=== PATIENT | male | born 2005 | race Caucasian/White ===

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

== ENCOUNTER 2024-09-19 01:04 | Outpatient (CLI) | payer MEDICAID, SELFPAY ==
--- OUTSIDE RECORDS SUMMARY | 2024-09-19 01:08 | XMS_ITS | Encounter Summary ---
Author Organization [facility] Address [facility] [place] [address] Care Team Providers Care Water Meter Installer Name Role Phone Rashaun Sherman APRN Primary Care Provider +1- [phone] Encounter Details Date Type Department Care Team (Latest Contact Info) Description 11/29/2023 9:30 AM EDT TH Visit (TeleHealth) [place] [address] Tita Wood MD [facility] [place] [address] Essential hypertension Social History Tobacco Use Types Packs/Day Years Used Date Smoking Tobacco: Never Smokeless Tobacco: Never Sex and Gender Information Value Date Recorded Sex Assigned at Not on file Gender Identity Not on file Sexual Orientation Not on file documented as of this encounter Progress Notes * Tita Wood MD - 11/29/2023 9:30 AM EDT Images from the original note were not included. Section of Vascular Surgery [facility] [place] [id number] VASCULAR SURGERY POSTOP FOLLOW-UP - TELEHEALTH APPOINTMENT SERVICE DATE: 11/29/2023 SERVICE TIME: 9:34 AM PRIMARY CARE PHYSICIAN: Rashaun Sherman APRN REFERRING PROVIDER: No referring provider defined for this encounter. Patient verbally consents to this telephone visit and understands that this visit may be billed, similar to a clinic office visit. CC: Follow-up hypertension, concern for renal artery stenosis History of Present Illness: Marlin You is a 18 y.o. male who was seen by me on 10/16/2023 after referral from cardiology for evaluation of early onset mild hypertension and concern for renal arterystenosis. He underwent bilateral renal artery duplexes which note stated some elevated velocities however this was in the context of also an increased aortic velocity. He remains on a single low-doseagent of losartan 50 mg daily. He reports he has not been checking his blood pressure is much, however when he does to the 130s over 90s. He denies any new symptoms or concerns. He did undergo a CTA for follow-up to rectify the findings on the ultrasound. Physical Exam: Telehealth visit limited. Patient was alert, awake and well-appearing. DATA: Radiology: 11/2023 CT a abdomen and pelvis Normal caliber thoracic and abdominal aorta without any evidence of atherosclerosis or stenosis Widely patent bilateral iliac systems Celiac artery with mild compression likely secondary to median arcuate ligament compression, otherwise widely patent SMA widely patent without any evidence of stenosis Right renal artery and main left and accessory renal arteries are widely patent without any evidence of stenosis I have personally reviewed the following images/data: CTA Impression: 18 y.o. male with mild single agent hypertension without any evidence of renal artery stenosis. The elevated velocities on the prior ultrasound were mild, and are not consistent with a completely normal CTA. His symptoms and mild hypertension are also not suggestive of renovascular hyper tension. Plan: - I recommended he continue to follow-up with his PCP as well as his instrument technician for ongoing management of his hypertension. - follow-up as needed SIGNATURE: Tita Wood MD PATIENT NAME: Marlin You DATE: November 29, 2023 TIME: 9:34 AM I provided care to the patient today via telehealth call. The total time associated with this visitwas 25 minutes. documented in this encounter Plan of Treatment Not on file documented as of this encounter Visit Diagnoses Diagnosis Essential hypertension Unspecified essential hypertension documented in this encounter Care Teams Water Meter Installer Relationship Specialty Start Date End Date Rashaun Sherman APRN [address] [place] [address] PCP - General Family Medicine 08/23/23 documented as of this encounter
--- OUTSIDE RECORDS SUMMARY | 2024-09-19 01:08 | XMS_ITS | Encounter Summary ---
Author Organization [facility] [place] [address] Care Team Providers Care Art Therapy Specialist Name Role Phone Rashaun Sherman APRN Primary Care Provider +1- [phone] Reason for Referral * Consultation (Routine) - Closed Specialty Diagnoses / Procedures Referred By Stefano t Referred To Contact Vascular Surgery Diagnoses Atherosclerosis of renal artery ROUTINE, MD/WINDY, DOT Rashaun Cartwright APRN [address] [place] [address] [facility] Vascular Surg [address] [place] [address] Referral ID Status Reason Start Date Expiration Date V isits Requested Visits Authorized [id number] Closed Consult, Test & Treat 08/31/2023 08/30/2024 1 1 Encounter Details Date Type Department Care Team (Late st Contact Info) Description 08/31/2023 Transcribe Orders eDH Incoming Referrals [phone] Rashaun Sherman APRN [address] [place], [place] [id number] Atherosclerosis of renal artery Social History Tobacco Use Types Packs/Day Years Used Date Smoking Tobacco: Never Smokeless Tobacco: Never Sex and Gender Information Value Date Recorded Sex Assigned at Not on file Gender Identity Not on file Sexual Orientation Not on file documented as of this encounter Plan of Treatment Scheduled Referrals Name Type Priority Associated Diagnoses Orde r Schedule Referral to Vascular Surgery Outpatient Referral Routine Atherosclerosis of renal artery Ordered: 08/31/2023 documented as of this encounter Visit Diagnoses Diagnosis Atherosclerosis of renal artery documented in this encounter Care Teams Art Therapy Specialist Relationship Specialty Start Date End Date Rashaun Sherman, BSW [address] [place] [address] PCP - General Family Medicine 08/23/23 documented as of this encounter
--- OUTSIDE RECORDS SUMMARY | 2024-09-19 01:08 | XMS_ITS | Encounter Summary ---
[place] [address] Care Team Providers Care Poultry Eviscerator Name Role Phone Rashaun Sherman APRN Primary Care Provider +1- [phone] Encounter Details Date Type Department Care Team (Latest Contact Info) Description 08/23/2023 Travel Social History Tobacco Use Types Packs/Day Years Used Date Smoking Tobacco: Never Smokeless Tobacco: Never Sex and Gender Information Value Date Recorded Sex Assigned at Not on file Gender Identity Not on file Sexual Orientation Not on file documented as of this encounter Plan of Treatment Not on file documented as of this encounter Visit Diagnoses Not on filedocumented in this encounter Care Teams Poultry Eviscerator Relationship Specialty Start Date End Date Rashaun Sherman APRN [address] [place], [place] [id number] PCP - General Family Medicine 08/23/23 documented as of this encounter
--- OUTSIDE RECORDS SUMMARY | 2024-09-19 01:08 | XMS_ITS | Encounter Summary ---
[place] [address] Care Team Providers Care Machine Tester Name Role Phone Unavailable Primary Care Provider Unavailabl e Encounter Details Date Type Department Care Team (Late st Contact Info) Description 07/28/2023 External [place] [id number] Social History Tobacco Use Types Packs/Day Years Used Date Smoking Tobacco: Never Assessed Sex and Gender Information Value Date Recorded Sex Assigned at Not on file Gender Identity Not on file Sexual Orientation Not on file documented as of this encounter Plan of Treatment Not on file documented as of this encounter Procedures Procedure Name Priority Date/Time Associated Diagnosis Comments ECG SCAN Routine 07/28/2023 10:14 PM EST documented in this encounter Results * Scan Doc: ECG (07/28/2023 10:14 PM EST) Historical Provider MD CHRISTOPHER LENZ SCAN EX T ORDR/RSLT documented in this encounter Visit Diagnoses Not on filedocumented in this encounter
--- OUTSIDE RECORDS SUMMARY | 2024-09-19 01:08 | XMS_ITS | Encounter Summary ---
Author Organization [facility] Address [facility] [place] [address] Care Team Providers Care Stone Belt Sander Name Role Phone Unavailable Primary Care Provider Unavailabl e Encounter Details Date Type Department Care Team (Late st Contact Info) Description 07/28/2023 Telephone [place] [phone] Zachariah Warner MD [facility] [place] [address] Social History Tobacco Use Types Packs/Day Years Used Date Smoking Tobacco: Never Assessed Sex and Gender Information Value Date Recorded Sex Assigned at Not on file Gender Identity Not on file Sexual Orientation Not on file documented as of this encounter Miscellaneous Notes * Telephone Encounter - Zachariah Warner MD - 07/28/2023 10:40 PM EST Images from the original note were not included. Initial Contact Date: 07.28.23 Referring Provider: Camryn Patient Location: [facility] HPI: 18 yoM w/ PMHx of HTN on losartan, presenting with chest pain. Reports 6-8 hours of chest pain. Pleuritic, left anterior. Otherwise fit, no syncope, dyspnea or other complaints. No family history of cardiac disease. Vitals: Vitals wnl Exam: Exam wnl per provider Bedside POCUS normal LV function, valvular movements Pertinent Diagnostic Findings: ECG: NSR, T wave inversion inferior leads, dagger like q wave in inferior and lateral leads Trop 79>71 (ULN 60) CXR: wnl Past cardiac studies: N/a OSH Interventions: No medications Assessment: Recommendations: 18 yoM w/ PMHx of HTN on losartan who presents with chest pain. Hemodynamically normal, non-tachycardic. Troponins slightly elevated but flat with ECG demonstrating q waves in inferior and lateral leads with T wave inversion in inferior leads. Pleuritic nature of chest pain is more likely viral myocarditis, however ECG with suggestion of possible underlying HCM. Given stable status and symptoms that have largely resolved, reasonable to pursue further outpatient diagnostics. Plan: - obtain echocardiogram - consider exercise testing and cMR - outpatient workup of hypertension - screen for toxins - follow-up with cardiology Above recommendations were based on my discussion with Dr. Cowan ; I have not personally interviewed or examined this patient. Advised to call the transfer center back with any changes in the patient condition. Zachariah Warner MD [employer] Developer documented in this encounter Plan of Treatment Not on file documented as of this encounter Visit Diagnoses Not on filedocumented in this encounter
--- OUTSIDE RECORDS SUMMARY | 2024-09-19 01:08 | XMS_ITS | Encounter Summary ---
Author Organization [facility] [place] [address] Care Team Providers Care Operating Engineer Apprentice Name Role Phone Unavailable Primary Care Provider Unavailabl e Reason for Referral * Consultation (Routine) - Closed Specialty Diagnoses / Procedures Referred By Contarslan t Referred To Contact Cardiology Diagnoses Chest pain, unspecified type Myocarditis, unspecified chronicity, unspecified myocarditis type Acute pericarditis, unspecified type S/P ED @ [facility] for non-exertional L anterior chest pain, Myocarditis, Acute pericarditis. EKG- NSR ,dagger-like Q waves inferior lateral, LVH. PMH HTN-recently started on losartan, no FHX of CVD. Martin Liu MD [address] [place] [address] [place] [address] [facility] Card[facility] [address] [place] [phone] Referral ID Status Reason Start Date Expiration Date V isits Requested Visits Authorized [id number] Closed Consult, Test & Treat PCP Updated and/or Approved 08/02/2023 08/01/2024 6 6 Encounter Details Date Type Department Care Team (Late st Contact Info) Description 08/02/2023 Transcribe Orders eDH Incoming Referrals [phone] Martin Liu MD [address] [place] [address] [address] [place], [place] [id number] Chest pain, unspecified type; Myocarditis, unspecified chronicity, unspecified myocarditis type; Acute pericarditis, unspecified type Social History Tobacco Use Types Packs/Day Years Used Date Smoking Tobacco: Never Assessed Sex and Gender Information Value Date Recorded Sex Assigned at Not on file Gender Identity Not on file Sexual Orientation Not on file documented as of this encounter Plan of Treatment Scheduled Referrals Name Type Priority Associated Diagnoses Orde r Schedule Referral to Cardiology Outpatient Referral Routine Chest pain, unspecified type Myocarditis, unspecified chronicity, unspecified myocarditis type Acute pericarditis, unspecified type Ordered: 08/02/2023 documented as of this encounter Visit Diagnoses Diagnosis Chest pain, unspecified type Myocarditis, unspecified chronicity, unspecified myocarditis type Acute pericarditis, unspecified type documented in this encounter
--- OUTSIDE RECORDS SUMMARY | 2024-09-19 01:08 | XMS_ITS | Encounter Summary ---
Author [place] [address] Care Team Providers Care Shrimp Trawler Captain Name Role Phone Rashaun Sherman APRN Primary Care Provider +1- [phone] Encounter Details Date Type Department Care Team (Latest Contact Info) Description 10/16/2023 Travel Social History Tobacco Use Types Packs/Day [...] on filedocumented in this encounter Care Teams Shrimp Trawler Captain Relationship Specialty Start Date End Date Rashaun Sherman APRN [address] [place], [place] [id number] PCP - General Family Medicine 08/23/23 documented as of this encounter
--- OUTSIDE RECORDS SUMMARY | 2024-09-19 01:08 | XMS_ITS | Encounter Summary ---
Author Organization [facility] [place] [address] Care Team Providers Care Software Programmer Name Role Phone Rashaun Sherman APRN Primary Care Provider +1- [phone] Encounter Details Date Type Department Care Team (Late st Contact Info) Description 10/16/2023 Telephone [place] [address] Alejandrina Sparrow Social History Tobacco Use Types Packs/Day Years Used Date Smoking Tobacco: Never Smokeless Tobacco: Never Sex and Gender Information Value Date Recorded Sex Assigned at Not on file Gender Identity Not on file Sexual Orientation Not on file documented as of this encounter Miscellaneous Notes * Telephone Encounter - Alejandrina Sparrow - 10/16/2023 11:49 AM ESTSummary: Prior Authorization I spoke with Rashaun at [place] [employer] to obtain prior authorization for a CT Angio at [facility], Per Rashaun: no prior auth required, call reference # [id number]. [place] Medicaid: [phone] Angio order and patient facesheet to [facility] at [phone] and asked them to call thepatient directly to schedule. Patient's voicemail cut me off several times so I am not sure if he will get my message. Dr. Wood requested a telehealth visit with patient to go over the results. documented in this encounter Plan of Treatment Not on file documented as of this encounter Visit Diagnoses Not on filedocumented in this encounter Care Teams Software Programmer Relationship Specialty Start Date End Date Rashaun Sherman APRN [address] [place] [address] PCP - General Family Medicine 08/23/23 documented as of this encounter
--- OUTSIDE RECORDS SUMMARY | 2024-09-19 01:08 | XMS_ITS | Encounter Summary ---
[place] [address] Care Team Providers Care Bag Patcher Name Role Phone Rashaun Sherman APRN Primary Care Provider +1- [phone] Reason for Referral * Diagnostic Test (Routine) - Closed Specialty Diagnoses / Procedures Referred By Stefano t Referred To Contact Diagnoses Essential hypertension Renal artery stenosis Procedures Duplex Study Renal Arteries, Luh Prince APRN [facility] [place] [address] [facility] Vascular Lab [address] [place] [address] Referral ID Status Reason Start Date Expiration Date V isits Requested Visits Authorized [id number] Closed Specialty Service Requested 08/31/2023 08/30/2024 1 1 Encounter Details Date Type Department Care Team (Late st Contact Info) Description 08/31/2023 Orders [place] [phone] Luh Gallardo APRN [facility] [place] [address] Essential hypertension; Renal artery stenosis Social History Tobacco Use Types Packs/Day Years Used Date Smoking Tobacco: Never Smokeless Tobacco: Never Sex and Gender Information Value Date Recorded Sex Assigned at Not on file Gender Identity Not on file Sexual Orientation Not on file documented as of this encounter Plan of Treatment Not on file documented as of this encounter Visit Diagnoses Diagnosis Essential hypertension Unspecified essential hypertension Renal artery stenosis Atherosclerosis of renal artery documented in this encounter Care Teams Bag Patcher Relationship Specialty Start Date End Date Rashaun Sherman, TELECOMMUNICATIONS NETWORK ENGINEER [address] [place] [address] PCP - General Family Medicine 08/23/23 documented as of this encounter
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
--- OUTSIDE RECORDS SUMMARY | 2024-09-19 01:08 | XMS_ITS | Clinical Summary ---
Author Organization [facility] [place] [address] Care Team Providers Care Back Shoe Worker Name Role Phone Rashaun Sherman APRN Primary Care Provider +1- [phone] Allergies No known active allergies Medications Medication Sig Dispensed Refills Start Date End Date Status losartan (Cozaar) 50 mg tabletIndications:Esse ntial hypertension Take 1 tablet by mouth daily. 90 tablet 3 08/23/2023 Active Active Problems No known active problems Family History Medical History Relation Comments Hypertension Other aunt and uncle Relation Status Comments Other Social History Tobacco Use Types Packs/Day Years Used Date Smoking Tobacco: Never Smokeless Tobacco: Never Tobacco Cessation:Counseling Given: Not Answered Sex and Gender Information Value Date Recorded Sex Assigned at Not on file Gender Identity Not on file Sexual Orientation Not on file Last Filed Vital Signs Vital Sign Reading Time Taken Comments Blood Pressure 139/60 10/16/2023 8:46 AM EST Pulse 78 10/16/2023 8:46 AM EST Temperature - - Respiratory Rate - - Oxygen Saturation 99% 08/23/2023 1:54 PM EST Inhaled Oxygen Concentration - - Weight 81.6 kg (180 lb) 10/16/2023 8:46 AM EST Height 185.4 cm (6' 1) 10/16/2023 8:46 AM EST Body Mass Index 23.75 10/16/2023 8:46 AM EST Plan of Treatment Health Maintenance Due Date Last Done Comments HPV vaccine (1 - Male 3-dose series) 2019 HIV screen 2022 Hepatitis C Screening 2022 Hepatitis B vaccine (0-59 yrs) (1) 2023 Tetanus/Diphtheria/Pertussis Vaccines (1 - Tdap) 06/27 Covid-19 Vaccine (1 - 2024-25 season) 2024 Influenza (Flu) vaccine (1 o f 1 - Influenza standard series) 05/04/2024 Care Teams Back Shoe Worker Relationship Specialty Start Date End Date Rashaun Sherman APRN [address] [place], [place] [address] PCP - General Family Medicine 08/23/23
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
--- OUTSIDE RECORDS SUMMARY | 2024-09-19 01:08 | XMS_ITS | Encounter Summary ---
[place] [address] Care Team Providers Care Captain Fire Prevention Bureau Name Role Phone Rashaun Sherman APRN Primary Care Provider +1- [phone] Encounter Details Date Type Department Care Team (Latest Contact Info) Description 08/29/2023 Travel Social History Tobacco Use Types Packs/Day [...] on filedocumented in this encounter Care Teams Captain Fire Prevention Bureau Relationship Specialty Start Date End Date Rashaun Sherman APRN [address] [place], [place] [id number] PCP - General Family Medicine 08/23/23 documented as of this encounter
--- OUTSIDE RECORDS SUMMARY | 2024-09-19 01:08 | XMS_ITS | Encounter Summary ---
Author Organization [facility] [place] [address] Care Team Providers Care Lap Layer Name Role Phone Rashaun Sherman APRN Primary Care Provider +1- [phone] Encounter Details Date Type Department Care Team (Late st Contact Info) Description 11/08/2023 Ancillary Procedure Radiology Library at [facility] [place] [address] Rashaun Sherman APRN [address] [place] [address] Social History Tobacco Use Types Packs/Day Years Used Date Smoking Tobacco: Never Smokeless Tobacco: Never Sex and Gender Information Value Date Recorded Sex Assigned at Not on file Gender Identity Not on file Sexual Orientation Not on file documented as of this encounter Plan of Treatment Not on file documented as of this encounter Procedures Procedure Name Priority Date/Time Associated Diagnosis Comments FILM LIBRARY STORAGE ONLY CT ABDOMEN AND PELVIS Routine 11/08/2023 12:00 AM EST documented in this encounter Results * Film Library- Storage Only CT Abdomen & Pelvis (11/08/2023 12:00 AM EST) Narrative DANIEL - 11/09/2023 9:39 AM EST This exam is auto-finalizing. It's purpose is for storage only. Rashaun Sherman APRN IMG FILM LIBRARY O RDERABLES [place], [place] documented in this encounter Visit Diagnoses Not on filedocumented in this encounter Care Teams Lap Layer Relationship Specialty Start Date End Date Rashaun Sherman APRN [address] [place] [address] PCP - General Family Medicine 08/23/23 documented as of this encounter
--- OUTSIDE RECORDS SUMMARY | 2024-09-19 01:08 | XMS_ITS | Encounter Summary ---
[place] [address] Care Team Providers Care Livestock Breeder Name Role Phone Rashaun Sherman APRN Primary Care Provider +1- [phone] Encounter Details Date Type Department Care Team (Late st Contact Info) Description 10/16/2023 8:00 AM EST Tech Visit [place] [id number] Hillary Palm Essential hypertension; Renal artery stenosis Social History [...] artery documented in this encounter Care Teams Livestock Breeder Relationship Specialty Start Date End Date Rashaun Sherman APRN [address] [place], [place] [address] PCP - General Family Medicine 08/23/23 documented as of this encounter
--- OUTSIDE RECORDS SUMMARY | 2024-09-19 01:08 | XMS_ITS | Encounter Summary ---
Author Organization [facility] [address] Care Team Providers Care Police Communications Dispatcher Name Role Phone Rashaun Sherman APRN Primary Care Provider [phone] Reason for Visit * Diagnostic Test (Routine) - Closed Specialty Diagnoses / Procedures Referred By Contac t Referred To Contact Diagnoses Essential hypertension Procedures Duplex Study Renal Arteries, BilRubio Leach MD [facility] [place] [address] [facility] [address] [place] [address] Referral ID Status Reason Start Date Expiration Date V isits Requested Visits Authorized [id number] Closed Specialty Service Requested 08/23/2023 08/22/2024 1 1 Encounter Details Date Type Department Care Team (Late st Contact Info) Description 08/29/2023 8:00 AM EST Tech [place] [address] Lorraine Short, RVT Essential hypertension Social History Tobacco Use Types [...] Procedure Name Priority Date/Time Associated Diagnosis Comments RENAL DUPLEX COMPLETE Routine 08/29/2023 7:58 AM EST Essential hypertension documented in this encounter Results * Duplex Study Renal Arteries, Bilat (08/29/2023 7:58 AM EST) VB Text Report Department: Vascular Surgery Lab Patient: [id number] (MARLIN JONES) CPT: 55098 Referring Physician: RUBIO HENSON ?? Indications: 18yr [...] hypertension documented in this encounter Care Teams Police Communications Dispatcher Relationship Specialty Start Date End Date Rashaun Sherman APRN [address] [place] [address] PCP - General Family Medicine 08/23/23 documented as of this encounter
[2024-09-19 14:03] LABS: Hemoglobin A1C 5.3 % (<5.7)
[2024-09-19 14:43] LABS: Calculated LDL 65 mg/dL (<100); Cholesterol 159 mg/dL (<200); HDL Cholesterol 83 mg/dL (40-60); Potassium 3.9 mmol/L (3.5-5.1); Triglyceride 58 mg/dL (<150)
== END 2024-09-19 01:05 | disposition home or self-care (01) ==
LOC: LBO 01:04
PROVIDERS: PCP Nurse Practitioner Family; Visit Provider Nurse Practitioner Family
DX: Z13.220 Encounter for screening for lipoid disorders (principal); I15.1 Hypertension secondary to other renal disorders; Z13.1 Encounter for screening for diabetes mellitus
CPT/HCPCS: 36415; 80061; 82565; 83036; 84132